=== PATIENT | male | born 1950 | race Caucasian/White ===

== ENCOUNTER 2016-05-25 05:05 | Inpatient (IN) | payer BC, OTHER ==
[2016-05-11 10:30] VITALS: BMI 28.0
--- NOTE | 2016-05-11 11:04 | PAT Medication Instructions ---
Service Date May 11, 2016. Current Home Medication List Aspirin (Aspirin Ec), 81 MG PO QAM Atenolol (Tenormin), 25 MG PO QAM Cholecalciferol (Vitamin D3), 1 TAB PO QAM Lisinopril (Zestril), 10 MG PO QAM Naproxen (Aleve), 220 MG PO PRN Omeprazole (Prilosec), 20 MG PO QAM [Red Eye], 1 DROP OPB PRN Medication Instructions For Your Scheduled Surgery - Check with surgeon for instructions: Naproxen (Aleve), 220 MG PO PRN - Hold the following medications the morning of surgery: Lisinopril (Zestril), 10 MG PO QAM Cholecalciferol (Vitamin D3), 1 TAB PO QAM - Take the following medications the morning of surgery with a sip of water: [Red Eye], 1 DROP OPB PRN Omeprazole (Prilosec), 20 MG PO QAM Atenolol (Tenormin), 25 MG PO QAM Aspirin (Aspirin Ec), 81 MG PO QAM - Take the following medications as scheduled the night before surgery: [Red Eye], 1 DROP OPB PRN If you have any questions please call us at [phone] (Fidelia Telles PA-C) or [phone] or [phone]
[2016-05-11 11:51] LABS: URINE APPEARANCE CLEAR (CLEAR); URINE BILIRUBIN NEG (NEG); URINE COLOR YELLOW; URINE NITRITE NEG (NEG); URINE PH 5.5 (4.5-7.5); URINE SPECIFIC GRAVITY 1.015 (1.000-1.030); UROBILINOGEN NEG (NEG); ZZUR CULT IF INDIC CLEAN CATCH NO
[2016-05-11 11:54] LABS: MANUAL MICROSCOPIC REQUIRED? NO; REVIEW REQ? NO
[2016-05-11 12:00] LABS: PARTIAL THROMBOPLASTIN RATIO 1.3; PROTHROMBIN TIME (PATIENT) 10.2 SECONDS (9.0-12.0)
--- NOTE | 2016-05-11 12:03 | DIAGNOSTIC IMAGING REPORT ---
CHEST PREADMISSION(PA/LAT) CLINICAL HISTORY: PAT preoperative evaluation COMPARISON STUDY: No previous studies for comparison. FINDINGS: The bones soft tissues and hemidiaphragms are normal. The cardiomediastinal silhouette is normal. The lungs are clear. The pulmonary vasculature is normal. IMPRESSION: Negative chest. Electronically signed by: Vineet Carver M.D. 05/11/2016 12:01 PM Dictated Date/Time: 05/11/2016 12:01 PM
[2016-05-11 13:14] LABS: C-REACTIVE PROTEIN 0.42 mg/dl (0-0.29)
[2016-05-25] VITALS (9 sets, daily range): BP systolic 112–144; BP diastolic 70–88; PULSE 54–68; TEMP 36.4–36.7; O2SAT 94–98; Ht 177.8 cm; Wt 90.4 kg
[~2016-05-25] VITALS: Ht 177.8 cm; Wt 90.4 kg
[~2016-05-25 05:05] MED LIST: ASPI81TA28 PO; ATEN-173 PO; CHOL1000 PO; LISI-461 PO; NAPR1TAB9 PO; PRLSR20 PO; [UNRECOGNIZED DRUG - REMARK] OPB
[2016-05-25] MEDS: VANCOMYCIN INJ 1,350 MG in SODIUM CHLORIDE 0.9% 250ML 250 ML IV SCH (05:53)
[2016-05-25] MEDS ORDERED: VANCOMYCIN INJ 400 MG in NSS 100ML IR SCH (06:00)
[2016-05-25] MEDS ORDERED: OXYCODONE HCL 10 MG TABCR (OXYCONTIN) PO SCH (06:00)
[2016-05-25] MEDS ORDERED: VANCOMYCIN 1GM/270ML NSS 270 ML IV SCH (06:00)
[2016-05-25] MEDS ORDERED: DEXAMETHASONE 4 MG TAB PO SCH (06:00)
[2016-05-25] MEDS ORDERED: GABAPENTIN 300 MG CAP PO SCH (06:00)
[2016-05-25] MEDS ORDERED: POLYMYXIN B SULFATE 100,000 UNITS in NSS 100ML IR SCH (06:00)
[2016-05-25] MEDS ORDERED: ACETAMINOPHEN 500 MG TAB PO SCH (06:00)
[2016-05-25] MEDS ORDERED: ROPIVACAINE 5MG/ML 30 ML 150 MG, BUPIVACAINE/EPINEPHR 0.5% MPF 30 ML, KETOROLAC TROMETH... INFIL SCH ×7 (06:00)
[2016-05-25] MEDS ORDERED: FAMOTIDINE 20 MG TAB PO SCH (06:00)
[2016-05-25] MEDS ORDERED: LACTATED RINGER'S 1000ML 500 ML IV ONE (06:00)
[2016-05-25] MEDS ORDERED: LACTATED RINGER'S 1000ML 1,000 ML IV SCH ×2 (06:00)
[2016-05-25] MEDS ORDERED: METOCLOPRAMIDE HCL 10 MG TAB PO SCH (06:00)
[2016-05-25] MEDS ORDERED: BUPIVACAINE 0.5 % 5 MG/1 ML PF 10ML VIAL ONE (06:36)
[2016-05-25] MEDS ORDERED: ROPIVACAINE 0.5% 5 MG/ML 30 ML VIAL ONE (06:36)
[2016-05-25] MEDS ORDERED: MIDAZOLAM HCL 1 MG/ML 2ML VIAL ONE (06:47)
[2016-05-25] MEDS ORDERED: FENTANYL CITRATE INJ 50 MCG/1 ML 2 ML VIAL ONE (06:47)
--- NOTE | 2016-05-25 06:55 | History and Physical ---
History & Physical Date May 25, 2016. Chief Complaint L KNEE PAIN History of Present Illness The patient is a 66 year old male with complaints of L KNEE PAIN. HX OF L TKA 2007. DID WELL INITIALLY NOW W PAIN 5/10 AND CO CLICKING INSTABILITY AND DECREASED ROM. HAS TRIED BRACING WITHOUT SUCCESS, NO CANE. XRAYS ARE CW ASEPTIC LOOSENING FOR REVISION TKA ESR 4 INFECTION MANE NEGATIVE Additional History Hepatic Disease: No Endocrine Disorder: No Kidney Disease: No Hypertension: Yes Heart Disease: Yes (MURMUR) Bleeding Tendencies: No Other: SLEEP APNEA Allergies Coded Allergies: Penicillins (Verified Allergy, Severe, THROAT SWELLS,SOB, 05/25/16) Sulfa Antibiotics (Verified Allergy, Intermediate, RASH, 05/25/16) Home Medications Scheduled Aspirin (Aspirin Ec), 81 MG PO QAM Atenolol (Tenormin), 25 MG PO QAM Cholecalciferol (Vitamin D3), 1 TAB PO QAM Lisinopril (Zestril), 10 MG PO QAM Naproxen (Aleve), 220 MG PO PRN Omeprazole (Prilosec), 20 MG PO QAM [Red Eye], 1 DROP OPB PRN Physical Examination Skin: warm/dry, no rash Eyes: normal inspection, EOMI, sclerae normal ENT: normal ENT inspection, pharynx normal Neck: supple, no adenopathy, trachea midline Respiratory/Chest: lungs clear, normal breath sounds, no respiratory distress Cardiovascular: + systolic murmur (GR2/6) Abdomen / GI: normal bowel sounds, non tender Back: normal inspection, + pertinent finding (SCAR HEALED ROM 5 TO 110 MODERATE 5 TO 10 MM INSTABILITY CREPITUS SM EFFUSION ) Neurologic/Psych: no motor/sensory deficits, alert, normal reflexes, oriented x 3 Diagnosis ASEPTIC LOOSENING L TKA ASA Classification: ASA Class II Plan of Treatment L REVISION TKA
[2016-05-25] MEDS ORDERED: POVIDONE-IODINE OP SOLN 30 ML BTL ONE (06:58)
[2016-05-25] MEDS ORDERED: ORTHO JOINT ANESTHETIC ONE (06:58)
[2016-05-25] MEDS ORDERED: BACITRACIN 50000 UNIT VIAL ONE (06:58)
[2016-05-25] MEDS ORDERED: EpHEDrine SULFATE INJ 50 MG/ML AMP IV PRN (07:30)
[2016-05-25] MEDS ORDERED: ATROPINE SULFATE 0.1 MG/ML 5ML SYR IV PRN (07:30)
[2016-05-25] MEDS ORDERED: HYDROmorphone INJ 2 MG/ML SYR/VIAL IV PRN (07:30)
[2016-05-25] MEDS ORDERED: PHENYLEPHRINE 100MCG/ML 5ML SYR IV PRN (07:30)
[2016-05-25] MEDS ORDERED: ONDANSETRON INJ 2 MG/ML 2 ML VIAL IV PRN ×2 (07:30→10:00)
[2016-05-25] MEDS ORDERED: PROPOFOL IV EMULSION 10 MG/ML 20 ML VIAL IV ONE ×4 (07:37→09:29)
[2016-05-25] MEDS ORDERED: LIDOCAINE HCL 2% 2 ML VIAL (20MG/ML) ONE (09:29)
--- NOTE | 2016-05-25 09:59 | [facility] Post Operative Brief Note ---
Immediate Operative Summary Operative Date May 25, 2016. Pre-Operative Diagnosis left knee painful tka Post-Operative Diagnosis left knee pain w aseptic loosening Procedure(s) Performed Left Total Knee Revision Surgeon Dr. Charles Cyr Attorney Surgeon(s) none Estimated Blood Loss 5mL Findings tibia loosed w osteolysis g stain negative synovium benign Specimens Microbiology- left knee synovial fluid; gram stain, routine culture and sensitivity, anaerobic and aerobic; out of room at 0741 Permanent- A: removed hardware from left knee B: left knee bone and tissue Complication(s) None Disposition Recovery Room / PACU
[2016-05-25] MEDS ORDERED: DiphenhydrAMINE HCL 50 MG/ML VIAL IV PRN (10:00)
[2016-05-25] MEDS ORDERED: METOCLOPRAMIDE HCL INJ 5 MG/ML 2 ML VIAL IV PRN (10:00)
[2016-05-25] MEDS ORDERED: MAGNESIUM HYDROXIDE SUSP 30 ML UDC PO PRN (10:00)
[2016-05-25] MEDS ORDERED: SOD PHOSPHATE/SOD BIPHOSPHATE ENEMA 132 ML BTL PR PRN (10:00)
[2016-05-25] MEDS ORDERED: TRAMADOL HCL 50 MG TAB PO PRN (10:00)
[2016-05-25] MEDS ORDERED: MoRPHine SULFATE 2 MG/ML CARP IV PRN (10:00)
[2016-05-25] MEDS ORDERED: ZOLPIDEM TARTRATE 5 MG TAB PO PRN (10:00)
[2016-05-25] MEDS ORDERED: BISACODYL 10 MG SUPP PR PRN (10:00)
[2016-05-25] MEDS ORDERED: ALUMINUM/MAGNESIUM/SIMETH (MAALOX MAX) 30 ML UDC PO PRN (10:00)
--- NOTE | 2016-05-25 10:31 | Anesthesiology Progress Note ---
Anesthesia Post Op Note Date & Time May 25, 2016 at 10:30 Vital Signs Pain Intensity: 0 Vital Signs Past 12 Hours Date Time Temp Pulse Resp B/P Pulse Ox O2 Delivery O2 Flow Rate FiO2 05/25/16 10:25 57 14 121/79 97 Nasal Cannula 2 05/25/16 10:15 36.3 64 16 127/80 95 Nasal Cannula 2 05/25/16 10:05 64 20 119/67 100 Mask 10 05/25/16 09:55 63 12 93/60 98 Mask 10 05/25/16 09:45 37.0 59 12 82/56 100 Mask 10 05/25/16 06:55 16 120/64 99 Room Air 05/25/16 05:25 36.5 68 16 132/78 99 Room Air 05/25/16 05:25 36.5 68 18 132/78 98 Room Air Notes Mental Status: alert / awake / arousable, participated in evaluation Pt Amnestic to Procedure: Yes Nausea / Vomiting: adequately controlled Pain: adequately controlled Airway Patency, RR, SpO2: stable & adequate BP & HR: stable & adequate Hydration State: stable & adequate Anesthetic Complications: no major complications apparent
--- NOTE | 2016-05-25 10:43 | DIAGNOSTIC IMAGING REPORT ---
LEFT KNEE 1 OR 2 VIEWS ROUTINE CLINICAL HISTORY: Total left knee arthroplasty. COMPARISON: None FINDINGS: Alignment of the long stem left knee arthroplasty is anatomic. There is a surgical drain and skin krista. There is no fracture or unexpected radiopaque foreign body. IMPRESSION: Expected findings following total left knee arthroplasty. Electronically signed by: Rizwan William M.D. 05/25/2016 10:40 AM Dictated Date/Time: 05/25/2016 10:40 AM
[2016-05-25] MEDS: TRANEXAMIC ACID INJ 1,000 MG in SODIUM CHLORIDE 0.9% 100ML 100 ML IV SCH ×2 (10:56→11:08)
[2016-05-25] MEDS: D5W AND 1/2NSS + 20MEQ KCL 1,000 ML IV SCH ×2 (11:48→20:57)
--- NOTE | 2016-05-25 13:05 | OPERATIVE REPORT ---
DATE OF OPERATION: 05/25/2016 PREOPERATIVE DIAGNOSIS: Degenerative arthritis, left knee. POSTOPERATIVE DIAGNOSIS: Same. PROCEDURE: Left revision total knee replacement. SURGEON: Dr. Cyr. ANESTHESIA: Spinal. TOURNIQUET TIME: 125 minutes at 250 mmHg. DRAINS: Hemovac x2. CULTURES: Aerobic and anaerobic. COMPLICATIONS: None. COMPONENTS USED: [employer] revision knee system: Femur size 6 with bilateral 10 mm posterior augments, 6 mm offset, and 18 x 120 stem. Tibia size 6, 10 mm Reynaud augment, 4 mm offset, 12 x 120 stem. Tibial insert size 15 constrained. INDICATION FOR PROCEDURE: This patient is a 66-year-old male with a history of total knee performed about 7-8 years ago. The patient initially did well, but then again developing pain, increase in deformity and instability. Radiographs showed increased radiolucency, varus malposition and instability. Workup for infection preoperatively was negative. DESCRIPTION: Following satisfactory spinal, the patient was supine. A tourniquet was placed on the lower extremity. The lower extremity was prepared with ChloraPrep and draped sterilely. Following a surgical time-out, a midline incision was made with a median parapatellar arthrotomy. The knee showed mild synovitis, fluid was cultured and the knee did not appear to be angry. The tibial component was loose. The tibial polyethylene was removed using the ultrasonic cement removal system, the femur was removed first. This was followed by removal of the tibia, which again was loose. The patella was inspected and was found to be in reasonable shape. The IM reaming and alignment system was used to prepare first the tibia and then the femur. The patella again was checked and was stable. The knee showed stable range of motion with the above-mentioned trial components and was stable. The trial components were removed, cement restriction plugs were placed, local anesthetic was placed and after irrigation, the components were cemented with Simplex G cement. A Betadine soak was performed. After 5 minutes, the Betadine was irrigated. Two drains were placed. The arthrotomy was closed with #2 FiberWire and #1 Vicryl. Subcutaneous tissues were closed with 2-0 Vicryl and the skin was closed with surgical krista. A surface dressing was applied. The tourniquet was deflated. The patient was returned to his bed in stable condition. I attest to the content of the Intraoperative Record and any orders documented therein. Any exceptio ns are noted below.
[2016-05-25] MEDS ORDERED: TRANEXAMIC ACID INJ 1,000 MG in SODIUM CHLORIDE 0.9% 100ML 100 ML IV SCH (16:00)
[2016-05-25] MEDS: ACETAMINOPHEN 500 MG TAB PO SCH ×2 (16:03→23:50)
[2016-05-25] MEDS: OXYCODONE HCL IR 5 MG TAB (IMMEDIATE RELEASE) PO PRN (16:03)
[2016-05-25] MEDS ORDERED: VANCOMYCIN INJ 1,350 MG in SODIUM CHLORIDE 0.9% 250ML 250 ML IV SCH (18:00)
[2016-05-25] MEDS: KETOROLAC TROMETHAMINE 30 MG/ML VIAL IV. SCH ×2 (18:13→23:50)
[2016-05-25] MEDS: OXYCODONE HCL 10 MG TABCR (OXYCONTIN) PO SCH (20:55)
[2016-05-25] MEDS: ASPIRIN 81 MG ECTAB PO SCH (20:55)
[2016-05-25] MEDS ORDERED: SENNA 8.6 MG TAB PO SCH (21:00)
[2016-05-26 03:25] VITALS: BP 124/71; PULSE 68; TEMP 36.7; O2SAT 94
[2016-05-26] MEDS: KETOROLAC TROMETHAMINE 30 MG/ML VIAL IV. SCH ×2 (05:40→12:00)
[2016-05-26] MEDS: D5W AND 1/2NSS + 20MEQ KCL 1,000 ML IV SCH (05:40)
[2016-05-26 05:44] LABS: MEAN CELL VOLUME 88.5 fL (80-100); MEAN CORPUSCULAR HGB CONC 33.9 g/dl (32-36); MEAN PLATELET VOLUME 9.4 fL (7.4-10.4); PLATELET COUNT 233 K/uL (130-400); RED BLOOD COUNT 4.07 M/uL (4.7-6.1); WHITE BLOOD COUNT 12.32 K/uL (4.8-10.8)
[2016-05-26] MEDS: VANCOMYCIN INJ 1,350 MG in SODIUM CHLORIDE 0.9% 250ML 250 ML IV SCH (06:00)
[2016-05-26 06:05] LABS: BUN/CREATININE RATIO 14.8 (10-20); CALCIUM 9.2 mg/dl (8.5-10.1); CREATININE 0.89 mg/dl (0.60-1.40); POTASSIUM 4.5 mmol/L (3.5-5.1)
[2016-05-26 07:13] VITALS: BP 145/75; PULSE 68; TEMP 36.7; O2SAT 96
[2016-05-26] MEDS: ACETAMINOPHEN 500 MG TAB PO SCH (08:13)
[2016-05-26] MEDS: ASPIRIN 81 MG ECTAB PO SCH (08:14)
[2016-05-26] MEDS: OXYCODONE HCL IR 5 MG TAB (IMMEDIATE RELEASE) PO PRN ×2 (08:19→12:35)
[2016-05-26] MEDS: OXYCODONE HCL 10 MG TABCR (OXYCONTIN) PO SCH (08:19)
--- NOTE | 2016-05-26 08:44 | Orthopedic Progress Note ---
Orthopedic Progress Note Date of Service May 26, 2016. Subjective Post OP Day: 1 Reports: feeling well, pain controlled w PO medications, Denies: SOB, complaints , light headedness, nausea / vomiting Objective calves soft nontender, N/V intact, dressing C/D/I, A&O x3, hemovac drainage ( 425 last shift ) Date Time Temp Pulse Resp B/P Pulse Ox O2 Delivery O2 Flow Rate FiO2 05/26/16 07:56 Room Air 05/26/16 07:13 36.7 68 16 145/75 96 Room Air 05/26/16 03:25 36.7 68 16 124/71 94 CPAP 05/25/16 23:15 Room Air 05/25/16 23:00 36.7 61 16 144/88 94 BiPAP 05/25/16 19:41 36.4 63 16 144/82 96 Room Air 05/25/16 16:38 36.5 64 16 124/73 95 Room Air 05/25/16 15:30 Room Air 05/25/16 13:40 36.5 57 19 114/70 97 Room Air 05/25/16 12:40 36.5 58 19 120/77 97 Nasal Cannula 2.0 05/25/16 11:40 58 17 113/73 98 Nasal Cannula 2.0 05/25/16 11:10 36.4 54 16 112/73 98 Nasal Cannula 2.0 05/25/16 10:40 36.4 55 16 119/77 97 Nasal Cannula 2.0 05/25/16 10:40 97 Nasal Cannula 2.0 05/25/16 10:40 97 Nasal Cannula 2.0 05/25/16 10:25 57 14 121/79 97 Nasal Cannula 2 05/25/16 10:15 36.3 64 16 127/80 95 Nasal Cannula 2 05/25/16 10:05 64 20 119/67 100 Mask 10 05/25/16 09:55 63 12 93/60 98 Mask 10 05/25/16 09:45 37.0 59 12 82/56 100 Mask 10 Laboratory Results 24 Hours: Test 05/26/16 05:30 Hematocrit 36.0 % Hemoglobin 12.2 g/dL Assessment & Plan Assessment: POD 1 REVISION TKA Plan: HOME TODAY W [facility] LEAVE DRFESSING DRAIN IN PLACE Inhouse Planning Pain Management: Celebrex, Oxycontin, PO Tylenol, Oxy IR DVT Prophylaxis: TEDs, SCDs, ASA Discharge Planning Discharge Planning: home with home health Pain Management: Celebrex, Oxycontin, PO Tylenol, Oxy IR DVT Prophylaxis: TEDs, ASA
[2016-05-26] MEDS ORDERED: CHOLECALCIFEROL 1000 INTER.UNIT TAB PO SCH (09:00)
[2016-05-26] MEDS ORDERED: LISINOPRIL 10 MG TAB PO SCH (09:00)
[2016-05-26] MEDS ORDERED: PANTOprazole SOD 40 MG TAB PO SCH (09:00)
[2016-05-26] MEDS ORDERED: MULTIVITAMIN TAB PO SCH (09:00)
[2016-05-26] MEDS ORDERED: ASPEC81 PO (09:22)
[2016-05-26] MEDS ORDERED: RXC5 PO (09:22)
[2016-05-26] MEDS ORDERED: ACET-1138 PO (09:22)
[2016-05-26] MEDS ORDERED: MORP15TA19 PO (09:22)
--- NOTE | 2016-05-26 09:28 | Discharge Instructions ---
Discharge Instructions Date of Service May 26, 2016. Admission Reason for Admission: Left Knee Prosthetic Joint Implant Failure Discharge Discharge Diagnosis / Problem: left tka revision Discharge Goals Goal(s): Decrease discomfort, Improve function, Increase independence, Therapeutic intervention Activity Recommendations Activity Limitations: per Instructions/Follow-up section . Instructions / Follow-Up Instructions / Follow-Up ACTIVITY RECOMMENDATIONS: SELF CARE INSTRUCTIONS AFTER TOTAL KNEE REPLACEMENT A. You may need to continue a physical therapy program after discharge from the hospital. There are several options available to you. Your doctor will assist you in selecting the best one for you. 1. An out-patient facility 2 to 3 times a week for therapy or home therapy. 2. Continue working on all exercises taught to you in the hospital. Your goals should be to increase bending of your knee to 90 degrees and beyond and to fully straighten your knee. B. You may progress at your own pace from walking with a walker or crutches to a cane; then to no assistive devices. C. Make walking a part of your daily routine. Be up as much as comfortable with rest periods throughout the day. Rest with leg elevation is very important. Use the ice wrap frequently for the first 3-4 weeks. D. There are no restrictions on activities. You may ride in a car, shop, participate in district medical examiner and all social activities. E. Wear the long elastic stockings (HOMERO hose) 20 hours a day for 2 weeks after surgery. They can be removed several times a day for laundering and for a bath. F. You may shower, no tub baths until cleared by your doctor. SPECIAL CARE INSTRUCTIONS: VERY IMPORTANT TO READ AND REVIEW A. There are a few signs you need to watch for after you are home. Call [facility] [place] if you notice any of the followin. Increased severe knee pain. Some pain is expected especially when you exercise. 2. Increased swelling in your leg or knee; pain or swelling of the calf muscle in either lower leg. 3. Any fluid drainage from the incision. 4. Shortness of breath or chest pain. B. Please call [facility] at if you have any concerns or questions about your operation or recovery. The doctor or his nurse will return your call promptly. C. You must take antibiotics before dental work, bladder, bowel or other surgery. Your doctor will provide you with a permanent care to carry describing this precaution. IMPORTANT: * REMEMBER TO TAKE ASPIRIN, 81 MG, TWICE DAILY FOR 4 WEEKS UNLESS OTHERWISE DIRECTED. THIS IS YOUR BLOOD THINNER. * HIGH RISK PATIENTS MAY BE PRESCRIBED A STRONGER BLOOD THINNER. THIS WILL BE PROVIDED AT DISCHARGE. * CALL IF INCREASED PAIN, REDNESS, DRAINAGE OR FEVER GREATER THAT 101. * WEAR HOMERO HOSE 20 HOURS PER DAY FOR 2 WEEKS. * YOU MAY HAVE A LARGE BAND-AID LIKE DRESSING (SILVERON). THIS WILL REMAIN ON YOUR INCISION FOR 7 DAYS, THEN CAN BE REMOVED. IF INCISION IS LEAKING THROUGH DRESSING, CALL THE OFFICE . FOLLOW UP VISIT: If appointment is not already scheduled: Please call [facility] [place] to make a follow-up appointment for 2 weeks after your surgery at . Current Hospital Diet Patient's current hospital diet: Regular Diet Discharge Diet Recommended Diet: Regular Diet Procedures Procedures Performed: Left Total Knee Revision Pending Studies Studies pending at discharge: no Medical Emergencies . Who to Call and When: Medical Emergencies: If at any time you feel your situation is an emergency, please call [phone] immediately. . Non-Emergent Contact Non-Emergency issues call your: Primary Care Provider . "Provider Documentation" section prepared by Johanny Villela. VTE Core Measure Inpt VTE Proph given/why not?: Other Anticoagulation (ASA), TLeslie Shine, SCD's [place] Drug Monitoring Program Search Results: patient reviewed within database, no issues identified
[2016-05-26 10:16] VITALS: BP 129/81; PULSE 64; O2SAT 99
[2016-05-26 11:19] VITALS: BP 145/75; PULSE 68; TEMP 36.7; O2SAT 96
--- NOTE | 2016-05-30 08:51 | DISCHARGE SUMMARY ---
DISCHARGE DIAGNOSIS: Painful left total knee replacement. SECONDARY DIAGNOSES: None. CONSULTS: None. COMPLICATIONS: None. PROCEDURE: The patient underwent a left total knee revision arthroplasty with Dr. Cyr on 05/25/2016. BRIEF HISTORY: Please see previously dictated history and physical. HOSPITAL SUMMARY: The patient was admitted on the above day for the above procedure. Procedure went without complication. Postop day 1, the patient was feeling well without complaints. She denied chest pain or shortness of breath. Vital signs were stable. She was afebrile. Dressing was clean, dry and intact. She was neurovascularly intact. Calves were soft and nontender. Hemovac drained 425 mL. Hemoglobin was 12.2. The patient began physical therapy per protocol. He was discharged to home later that day with his dressing and drain intact. He had [facility] for home physical therapy.
== END 2016-05-26 13:28 | disposition home or self-care (01) | DRG 468 ==
LOC: ENRESERVTM → ENRESERVDT → C.ACU 05:05 → C.3E 10:04
PROVIDERS: ADMIT Orthopaedic Surgery; ATTEND Orthopaedic Surgery
PROC: 0SRD0J9 Replacement of Left Knee Joint with Synthetic Substitute, Cemented, Open Approach (ICD-10-PCS; principal; 2016-05-25 07:15)
PROC: 0SPD0JZ Removal of Synthetic Substitute from Left Knee Joint, Open Approach (ICD-10-PCS; principal; 2016-05-25 07:15)
DX: T84.033A Mechanical loosening of internal left knee prosthetic joint, initial encounter (principal); Y79.2 Prosthetic and other implants, materials and accessory orthopedic devices associated with adverse incidents; M17.12 Unilateral primary osteoarthritis, left knee; T84.023A Instability of internal left knee prosthesis, initial encounter; Z96.652 Presence of left artificial knee joint; I25.10 Atherosclerotic heart disease of native coronary artery without angina pectoris; I10 Essential (primary) hypertension; N40.0 Benign prostatic hyperplasia without lower urinary tract symptoms; G47.30 Sleep apnea, unspecified; Z72.0 Tobacco use; Z79.1 Long term (current) use of non-steroidal anti-inflammatories (NSAID); Z79.82 Long term (current) use of aspirin; Z79.899 Other long term (current) drug therapy